=== PATIENT | male | born 1940 | race Caucasian/White ===

== ENCOUNTER 2019-04-27 07:23 | Emergency (ER) | payer MEDICARE ==
[~2019-04-27] VITALS: Ht 185.4 cm; Wt 81.5 kg
[2019-04-27] MEDS ORDERED: ALTEPLASE 100 MG IV ONE (07:43)
--- NOTE | 2019-04-27 07:43 | RAD ---
CT CODE STROKE HEAD WO History: Code stroke. Right-sided aphasia. Comparison: December 25, 2014. Technique: Noncontrast CT imaging was performed of the head. Exposure: One or more of the following individualized dose reduction techniques were utilized for this examination: 1. Automated exposure control 2. Adjustment of the mA and/or kV according to patient size 3. Use of iterative reconstruction technique. Findings: No intracranial hemorrhage. No mass effect. No hydrocephalus. Extra-axial spaces are unremarkable. Chronic left lateral frontal small cortical infarct. Encephalomalacia within the right frontal lobe, unchanged. Postoperative changes right frontoparietal craniotomy. Imaged orbits are unremarkable. Imaged paranasal sinuses and mastoid air cells are clear. Impression: 1. No acute intracranial abnormality. MRI can better evaluate for acute ischemia. 2. Chronic small left frontal cortical infarct. 3. Right-sided craniotomy with small right frontal encephalomalacia, unchanged. FOR INTERNAL CODING PURPOSES Critical result: Findings discussed with CRYSTAL ZULETA at 04/27/2019 7:38 AM. RESULT CODE: (C) Electronically signed by: Rafael Recio DO (04/27/2019 7:39 AM) [facility]
[2019-04-27] MEDS ORDERED: ALTEPLASE IV ONE (07:45)
[2019-04-27] MEDS ORDERED: ALTEPLASE IV SCH (07:45)
[2019-04-27] MEDS ORDERED: IV NORMAL SALINE 50ML 50 ML IV ONE (07:45)
[2019-04-27] MEDS ORDERED: IV NORMAL SALINE 50ML 50 ML ONE (07:46)
[2019-04-27 07:54] LABS: HEMATOCRIT 46.6 % (39.0-53.0); HEMOGLOBIN 15.7 g/dL (13.0-17.5); RED BLOOD COUNT 5.19 x10^6/uL (4.30-5.70); RED CELL DISTRIBUTION WIDTH 13.6 % (11.5-14.5); WHITE BLOOD COUNT 5.5 x10^3/uL (4.0-11.0)
--- NOTE | 2019-04-27 07:54 | PHYS DOC ---
Past History Past Medical History: CVA, Diabetes, High Cholesterol, Hypertension Past Surgical History: Cholecystectomy, Pacemaker, Other (Craniotomy after traumatic SDH) Smoking: Non-smoker Alcohol Use: None Drug Use: None Adult General Chief Complaint Chief Complaint: WEAKNESS/GENERALIZED HPI HPI 78-year-old male presents to the emergency department with strokelike symptoms onset approximately 6:30 this morning, states patient was up around 6:15 cleaning the litter box and subsequently the symptoms around 6:30 as described previously. Patient had some gait disturbance, speech difficulty, right upper extremity weakness according to EMS. Patient's underlying history of hypertensio n, hyperlipidemia, diabetes. Patient does have history of CVA in August. He is well has history of subdural hematoma status post traumatic event. Patient is on Plavix, he is allergic to aspirin. Review of Systems Review of Systems Unable to complete review of systems, patient with severe dysarthria as well as aphasia All other systems were reviewed and found to be within normal limits, except as documented in this note. Current Medications Current Medications Current Medications Medications (Trade) Dose Ordered Sig/Keyanna Start Time Stop Time Status Last Admin Dose Admin Alteplase, Recombinant 0 ml @ 0 mls/hr Q1H 04/27/19 07:45 04/27/19 07:46 UNV Sodium Chloride 50 ml @ 0 mls/hr 1X ONCE 04/27/19 07:45 04/27/19 07:46 UNV Allergies Allergies Allergies Coded Allergies Type Severity Reaction Last Updated Verified aspirin Allergy Unknown 04/27/19 Yes Physical Exam Physical Exam Constitutional: Well developed, well nourished, no acute distress, non-toxic appearance. [] HENT: Normocephalic, atraumatic, bilateral external ears normal, oropharynx moist, no oral exudates, nose normal. [] Eyes: PERRLA, EOMI, conjunctiva normal, no discharge. [] Neck: Normal range of motion, no tenderness, supple, no stridor. [] Cardiovascular:Heart rate regular rhythm, no murmur [] Lungs & Thorax: Bilateral breath sounds clear to auscultation [] Abdomen: Bowel sounds normal, soft, no tenderness, no masses, no pulsatile masses. [] Skin: Warm, dry, no erythema, no rash. [] Back: No tenderness, no CVA tenderness. [] Extremities: No tenderness, no cyanosis, no clubbing, ROM intact, no edema. [] Neurologic: Alert, please see NIHSS Psychologic: Affect normal, judgement normal, mood normal. [] Current Patient Data Vital Signs Blood Pressure Assessment Label 127/79 * Mean 95 Blood Pressure Systolic * 127 mm Hg (100-140) Blood Pressure Diastolic * 79 mm Hg (60-100) Pulse Rate * 78 beats per minute (60-90) Respiratory Rate * 14 breaths per minute (12-24) Oxygen Delivery Method * Room Air Bedside Pulse Oximetry * 94 % Lab Results Laboratory Tests Test 04/27/19 07:30 White Blood Count 5.5 x10^3/uL Red Blood Count 5.19 x10^6/uL Hemoglobin 15.7 g/dL Hematocrit 46.6 % Mean Corpuscular Volume 90 fL Mean Corpuscular Hemoglobin 30 pg Mean Corpuscular Hemoglobin Concent 34 g/dL Red Cell Distribution Width 13.6 % Platelet Count 193 x10^3/uL Prothrombin Time 10.2 SEC Prothromb Time International Ratio 1.0 Activated Partial Thromboplast Time 24 SEC Sodium Level 141 mmol/L Potassium Level 3.8 mmol/L Chloride Level 105 mmol/L Carbon Dioxide Level 27 mmol/L Anion Gap 9 Blood Urea Nitrogen 26 mg/dL Creatinine 1.1 mg/dL Estimated GFR (Cockcroft-Gault) 64.7 Glucose Level 130 mg/dL Calcium Level 8.9 mg/dL Current Medications Medications (Trade) Dose Ordered Sig/Keyanna Route PRN Reason Start Time Stop Time Status Last Admin Dose Admin Alteplase, Recombinant 100 ml @ As Directed STK-MED ONCE IV 04/27/19 07:43 04/27/19 07:44 DC Sodium Chloride 50 ml @ As Directed STK-MED ONCE .ROUTE 04/27/19 07:46 04/27/19 07:46 DC Alteplase, Recombinant 0 ml @ 0 mls/hr 1X ONCE IV 04/27/19 07:45 04/27/19 07:51 DC 04/27/19 07:54 Alteplase, Recombinant 0 ml @ 0 mls/hr Q1H IV 04/27/19 07:45 04/27/19 07:51 DC 04/27/19 07:55 Sodium Chloride 50 ml @ 0 mls/hr 1X ONCE IV 04/27/19 07:45 04/27/19 07:51 DC EKG EKG EKG reviewed, normal sinus rhythm no evidence of acute ST or T wave change., Time of interpretation 0 731[] Radiology/Procedures Radiology/Procedures [address] [address] IMAGING REPORT Signed PATIENT: DAVID TAPIA CACCOUNT: [id number] : 1940 LOCATION: ER AGE: 78 SEX: M EXAM STATUS: REG ER ORD. PHYSICIAN: CRYSTAL ZULETA MD REASON: CODE STROKE, RIGHT SIDE APASHIA, OFF BALANCE ONSET 0630 PROCEDURE: CT CODE STROKE HEAD WO CT CODE STROKE HEAD WO History: Code stroke. Right-sided aphasia. Comparison: December 25, 2014. Technique: Noncontrast CT imaging was performed of the head. Exposure: One or more of the following individualized dose reduction techniques were utilized for this examination: 1. Automated exposure control 2. Adjustment of the mA and/or kV according to patient size 3. Use of iterative reconstruction technique. Findings: No intracranial hemorrhage. No mass effect. No hydrocephalus. Extra-axial spaces are unremarkable. Chronic left lateral frontal small cortical infarct. Encephalomalacia within the right frontal lobe, unchanged. Postoperative changes right frontoparietal craniotomy. Imaged orbits are unremarkable. Imaged paranasal sinuses and mastoid air cells are clear. Impression: 1. No acute intracranial abnormality. MRI can better evaluate for acute ischemia. 2. Chronic small left frontal cortical infarct. 3. Right-sided craniotomy with small right frontal encephalomalacia, unchanged. FOR INTERNAL CODING PURPOSES Critical result: Findings discussed with CRYSTAL ZULETA at 04/27/2019 7:38 AM. RESULT CODE: (C) Electronically signed by: Rafael Recio DO (04/27/2019 7:39 AM) [facility] DICTATED AND SIGNED BY: RAFAEL RECIO DO DATE: 04/27/19 0739 CC: CRYSTAL ZULETA MD; PHYLLIS CHO MD ~ [] Course & Med Decision Making Course & Med Decision Making Pertinent Labs and Imaging studies reviewed. (See chart for details) []78-year-old male presents to the emergency department with strokelike symptoms onset approximately 6:30 this morning, states patient was up around 6:15 cleaning the litter box and subsequently the symptoms around 6:30 as described previously. Patient had some gait disturbance, speech difficulty, right upper extremity weakness according to EMS. Patient's underlying history of hypertension, hyperlipidemia, diabetes. Patient does have history of CVA in August. He is well has history of subdural hematoma status post traumatic event. Patient is on Plavix, he is allergic to aspirin. Imaging reviewed, no evidence of acute hemorrhage or ischemic change. Patient does meet TPA criteria. Discussed with patient's and patient at bedside regarding plans for TPA initiation. Please see nursing notes for regards to code stroke timing. NIHSS 8. Contacted [facility], talked with her stroke neurologist.Dr CORADO, will accept patient in transfer. EMS contacted for emergent transfer. Dragon Disclaimer Dragon Disclaimer This electronic medical record was generated, in whole or in part, using a voice recognition dictation system. NIH Stroke Scale: NIH Stroke Scale Response (Comments) Value Level of Consciousness: 0 Alert/Responsive 0 LOC Questions: 2 Answers neither correct 2 LOC Commands: 1 Performs one task 1 Best Gaze: 0 Normal 0 Visual: 0 No visual loss 0 Facial Palsy: 1 Minor paralysis 1 Motor - Left Arm 0 No drift 0 Motor - Right Arm 0 No drift 0 Motor - Left Leg 0 No drift 0 Motor: Right Leg 0 No drift 0 Best Language: 2 Severe aphasia 2 Dysathria: 2 Severe 2 Extinction and Inattention: 0 Normal 0 Total 8 Departure Departure: Impression: Primary Impression: Ischemic cerebrovascular accident (CVA) Additional Impressions: Hypertension Diabetes Disposition: SHT-TRM HOSP Condition: CRITICAL Referrals: PHYLLIS CHO MD (PCP) Problem Qualifiers Additional Impressions: Hypertension Hypertension type: essential hypertension Qualified Codes: I10 - Essential (primary) hypertension Diabetes Diabetes mellitus type: type 2 Diabetes mellitus assistant terminal manager insulin use: without retirement use Diabetes mellitus complication status: without complication Qualified Codes: E11.9 - Type 2 diabetes mellitus without complications CRYSTAL ZULETA MD Apr 27, 2019 07:54
[2019-04-27 08:03] LABS: CALCIUM 8.9 mg/dL (8.5-10.1); CREATININE 1.1 mg/dL (0.7-1.3); GFR 64.7; POTASSIUM 3.8 mmol/L (3.5-5.1)
[2019-04-27 08:26] VITALS: BP 127/79
--- NOTE | 2019-04-27 14:23 | EKG ---
[address] [address] Test Date: 2019-04-27 Test Time: 07:31:35 Pat Name: DAVID TAPIA Department: Room: Gender: M Tier In: DIANE : 1940 Requested By: CRYSTAL ZULETA Order Number: [id number] Reading MD: Measurements Intervals [place] Rate: 78 P: 67 NM: 182 QRS: 52 QRSD: 94 T: 27 QT: 428 QTc: 492 Interpretive Statements SINUS RHYTHM R-S TRANSITION ZONE IN V LEADS DISPLACED TO THE RIGHT LOW LIMB LEAD VOLTAGE PROLONGED QT NO SPECIFIC ECG ABNORMALITIES RI6.01 No previous ECG available for comparison
== END 2019-04-27 08:07 | disposition short-term general hospital (02) ==
LOC: ER 07:23
DX: I63.9 Cerebral infarction, unspecified (principal); R47.01 Aphasia; G83.21 Monoplegia of upper limb affecting right dominant side; R53.1 Weakness; I10 Essential (primary) hypertension; E11.9 Type 2 diabetes mellitus without complications; E78.00 Pure hypercholesterolemia, unspecified; Z86.73 Personal history of transient ischemic attack (TIA), and cerebral infarction without residual deficits; Z95.0 Presence of cardiac pacemaker; Z88.6 Allergy status to analgesic agent
CPT/HCPCS: 36415; 37195; 70450; 80048; 85027; 85610; 85730; 93005; 99285; J2997